=== PATIENT | female | born 1935 | race Caucasian/White ===

== ENCOUNTER → 2020-11-04 | Outpatient (CLI) | payer MEDICARE ==
[~2020-11-04] VITALS: Ht 165.1 cm; Wt 57.2 kg
== END ==
LOC: OPSV 12:58
PROVIDERS: Internal Medicine Gastroenterology
DX: M81.0 Age-related osteoporosis without current pathological fracture (principal)
CPT/HCPCS: 36415; 80048; 96360; 96361; 96365; J3489

== ENCOUNTER → 2020-12-02 | Outpatient (CLI) | payer MEDICARE ==
[~2020-12-02] VITALS: Ht 165.1 cm; Wt 57.2 kg
[2020-12-02 13:31] LABS: HEMOGLOBIN 11.9 gm/dl (12.3-15.3); RED BLOOD COUNT 3.65 M/UL (4.00-5.10)
== END ==
LOC: OPSV 12:56
PROVIDERS: Internal Medicine Gastroenterology
DX: R19.7 Diarrhea, unspecified (principal); K52.839 Microscopic colitis, unspecified; R10.816 Epigastric abdominal tenderness; K25.3 Acute gastric ulcer without hemorrhage or perforation; D50.0 Iron deficiency anemia secondary to blood loss (chronic); H21.512 Anterior synechiae (iris), left eye; I48.91 Unspecified atrial fibrillation; M54.9 Dorsalgia, unspecified; C50.919 Malignant neoplasm of unspecified site of unspecified female breast; Z96.1 Presence of intraocular lens; K80.20 Calculus of gallbladder without cholecystitis without obstruction; H53.2 Diplopia; M85.9 Disorder of bone density and structure, unspecified; H50.10 Unspecified exotropia; H34.8120 Central retinal vein occlusion, left eye, with macular edema; Z96.89 Presence of other specified functional implants; Z87.39 Personal history of other diseases of the musculoskeletal system and connective tissue; Z79.890 Hormone replacement therapy; E21.3 Hyperparathyroidism, unspecified; E03.9 Hypothyroidism, unspecified; H44.4 Hypotony of eye; H50.22 Vertical strabismus, left eye; H52.213 Irregular astigmatism, bilateral; H40.1233 Low-tension glaucoma, bilateral, severe stage; E55.9 Vitamin D deficiency, unspecified; M81.0 Age-related osteoporosis without current pathological fracture; H40.1133 Primary open-angle glaucoma, bilateral, severe stage; S05.20XA Ocular laceration and rupture with prolapse or loss of intraocular tissue, unspecified eye, initial encounter; G47.30 Sleep apnea, unspecified; X58.XXXA Exposure to other specified factors, initial encounter
CPT/HCPCS: 36415; 80053; 85025; 86140; 96365

== ENCOUNTER → 2021-01-27 | Outpatient (CLI) | payer MEDICARE ==
[~2021-01-27] VITALS: Ht 165.1 cm; Wt 57.2 kg
[2021-01-27 12:29] LABS: HEMOGLOBIN 12.1 gm/dl (12.3-15.3); RED BLOOD COUNT 3.67 M/UL (4.00-5.10); WHITE BLOOD COUNT 6.7 K/UL (4.5-11.0)
== END ==
LOC: OPSV 11:48
PROVIDERS: Internal Medicine Gastroenterology
DX: K52.839 Microscopic colitis, unspecified (principal); R19.7 Diarrhea, unspecified; Z79.52 Long term (current) use of systemic steroids
CPT/HCPCS: 36415; 80053; 85025; 86140; 96365; J3380; J7050

== ENCOUNTER → 2021-03-24 | Outpatient (CLI) | payer MEDICARE ==
[~2021-03-24] VITALS: Ht 165.1 cm; Wt 57.2 kg
[2021-03-24 13:14] LABS: HEMOGLOBIN 11.6 gm/dl (12.3-15.3); RED BLOOD COUNT 3.55 M/UL (4.00-5.10); WHITE BLOOD COUNT 6.6 K/UL (4.5-11.0)
== END ==
LOC: OPSV 12:00
PROVIDERS: Internal Medicine Gastroenterology
DX: E28.0 Estrogen excess (principal); Z88.2 Allergy status to sulfonamides; Z88.8 Allergy status to other drugs, medicaments and biological substances
CPT/HCPCS: 80053; 85025; 86140; 96365; J3380; J7050

== ENCOUNTER → 2021-04-21 | Outpatient (CLI) | payer MEDICARE ==
[~2021-04-21] VITALS: Ht 165.1 cm; Wt 57.2 kg
[2021-04-21 13:15] LABS: HEMOGLOBIN 12.7 gm/dl (12.3-15.3); RED BLOOD COUNT 3.86 M/UL (4.00-5.10); WHITE BLOOD COUNT 9.7 K/UL (4.5-11.0)
== END ==
LOC: OPSV 12:39
PROVIDERS: Internal Medicine Gastroenterology
DX: K52.839 Microscopic colitis, unspecified (principal); R19.7 Diarrhea, unspecified
CPT/HCPCS: 36415; 80053; 85025; 86140; 96365; J3380; J7050

== ENCOUNTER → 2021-05-19 | Outpatient (CLI) | payer MEDICARE ==
[~2021-05-19] VITALS: Ht 165.1 cm; Wt 57.2 kg
[2021-05-19 12:40] LABS: RED BLOOD COUNT 3.35 M/UL (4.00-5.10); WHITE BLOOD COUNT 6.3 K/UL (4.5-11.0)
== END ==
LOC: OPSV 11:32
PROVIDERS: Internal Medicine Gastroenterology
DX: R19.7 Diarrhea, unspecified (principal); K52.89 Other specified noninfective gastroenteritis and colitis
CPT/HCPCS: 36415; 80053; 85025; 86140; 96365; J3380; J7030